=== PATIENT | female | born 1985 | race Caucasian/White ===

== ENCOUNTER 2018-06-09 01:34 | Outpatient (CLI) | payer BC, SELFPAY ==
--- NOTE | 2018-06-09 09:56 | DI.US_ITS ---
Many abnormalities cannot be diagnosed. A normal exam does not exclude a congenital anomaly. Radiology No. LMP: 04/15/19 Exam Date: 06/09/18 [facility] wks days on EDC ([facility]) Confirmed: HISTORY: TWIN INTRAUTERINE PREDICTED GESTATIONAL AGE NUMBER 8.3 weeks with a range of 7.3 week to 9.3 weeks. 1 Determined by___1STUS__X_LMP___HISTORY Info. pertaining to fetus # PLACENTA PRESENTATION Grade Cephalic___ Anterior___Posterior___ Breech____ Right Left Transverse(head right___ Fundal___Low-lying___Previa___ Transverse(head left___ Varying BIOMETRY AMNIOTIC FLUID BPD: mm weeks Normal HC: mm weeks Oligo Polyhydramnios AC: mm weeks FL: mm weeks AMNIOTIC FLUID INDEX >26 WK CRL: 19.4 mm 8.3 weeks Cisterna Magna: mm CI: RUQ: LUQ Cerebellum: cm EFW: grams Percentile RLQ: LLQ YOLK SAC: 3.5 mm. Total: cms Composite AGE= 8.3 wks EDC by US___01/16/19 BIOPHYSICAL PROFILE ANATOMY IDENTIFIED SCORE 0/2 Heart: 4-Chamber___Rate:BPM__173___ LVOT: RVOT: Amniotic Fluid(>2cms)____ Stomach: Kidneys: Respirations (>30 secs) Bladder: Post. Fossa: Body Flex/Extension 3 vessel cord: Ventricles: cord insertion: Lips:____ Extremity Flex/Extension spinal morphology: Nose: Total Score= Palate: NS=not seen There is a single intrauterine gestational sac which appears appropriately positioned within the endometrium. There is a small amount of subchorionic hemorrhage. pole measurements correspond to 8 weeks 3 days. cardiac activity is demonstrated at 173 beats per minute. A small cyst is seen on the right ovary. IMPRESSION: Single living intrauterine gestation measuring 8 weeks 3 days. Small amount of subchorionic hemorrhage is also seen.
== END 2018-06-09 01:54 ==
PROVIDERS: Visit Provider Obstetrics & Gynecology
DX: Z34.91 Encounter for supervision of normal pregnancy, unspecified, first trimester (principal); O20.8 Other hemorrhage in early pregnancy; N83.291 Other ovarian cyst, right side
CPT/HCPCS: 76801

== ENCOUNTER 2018-06-24 15:07 | Outpatient (REF) | payer BC, SELFPAY ==
--- NOTE | 2018-06-24 11:30 | PAPFT_PTH ---
PATIENT: Shena Cai LOC: [facility] U#:[id number] AGE/SX: 33/F ROOM: RE06/24/[address]: Veronica Dobbs CNM : 1985 BED: DIS: 06/24/2018 SPEC #: [id number] RECD: 06/24/18 17:26 STATUS: GIUSEPPE [place] #: [id number] ALEXUS: 06/24/18 11:[address]: Veronica Dobbs DEPT: [facility] Cytology RECD BY: Sona Lee ENTERED: 06/24/18 17:26 SP TYPE: PAPFT OTHR DR: No Local Tissues: 1 - CX/ENDOCX FOR PAP SMEARS Procedures: PAP THIN PREP/[facility] Screening HPV DNA PROBE Comments: [id number]
== END 2018-06-24 15:27 ==
LOC: LBN 15:07
PROVIDERS: Visit Provider Advanced Practice Midwife
DX: Z12.4 Encounter for screening for malignant neoplasm of cervix (principal); Z11.51 Encounter for screening for human papillomavirus (HPV)
CPT/HCPCS: 88142; 87624

== ENCOUNTER 2018-06-24 15:11 | Outpatient (REF) | payer SELFPAY ==
[2018-06-24 15:51] LABS: *AMPHETAMINES SCREEN URINE Negative (Negative); *BARBITURATES SCREEN URINE Negative (Negative); *BENZODIAZEPINES SCREEN URINE Negative (Negative); Cannabinoids THC Negative (Negative); Cocaine Screen,Urine Negative (Negative); METHADONE URINE SCREEN Negative (Negative); OPIATES URINE SCREEN Negative (Negative)
[2018-06-24 16:01] LABS: Tricyclic Antidepressants Negative (Negative)
[2018-06-25 14:57] LABS: Chlamydia Result Negative; GC Result Negative; Specimen Description CERVIX
[2018-06-28 12:23] LABS: Buprenorphine Negative; Norbuprenorphine Negative
== END 2018-06-24 15:31 ==
LOC: LBN 15:11
PROVIDERS: Visit Provider Advanced Practice Midwife
DX: Z34.91 Encounter for supervision of normal pregnancy, unspecified, first trimester (principal); Z11.3 Encounter for screening for infections with a predominantly sexual mode of transmission
CPT/HCPCS: 80307; 87491; 87591; 87086

== ENCOUNTER 2018-07-05 00:03 | Outpatient (CLI) | payer BC, SELFPAY ==
[2018-07-05 10:41] LABS: Abs Immature Grans 0.02 k/cumm (0.0-0.09); Absolute Basophil Count 0.02 k/cumm (0.0-0.2); Absolute Eosinophil Count 0.09 k/cumm (0.0-0.7); Absolute Lymphocyte Count 1.22 k/cumm (1.2-3.4); Absolute Monocyte Count 0.45 k/cumm (0.11-0.7); Absolute Neutrophil Count 6.89 k/cumm (1.2-6.7); Basophils % 0.2; HCT 38.9 % (36.0-46.0); HGB 14.1 g/dL (12.0-15.5); Immature Grans % 0.2; Mean Corp. HGB Concentration 36.2 g/dL (32.0-36.0); Mean Corpuscular Hemoglobin 30.6 pg (27.0-33.0); Mean Corpuscular Volume 84.4 fL (80-95); Mean Platelet Volume 9.5 fL (8.0-11.0); Monocytes % 5.2; Neutrophils % 79.4; Platelet Count 199 x1000/uL (130-400); RBC 4.61 m/cumm (4.00-5.20); White Blood Cell Count 8.69 k/cumm (4.4-10.8)
[2018-07-06 12:10] LABS: Rubella IgG Ab (UVM) Positive; Syphilis Serology (RPR) Negative (Negative); Varicella IgG Antibody Negative
[2018-07-06 13:17] LABS: HIV-1/2 Ag & Ab Screen Negative (NEGAT)
[2018-07-06 13:24] LABS: Hepatitis C Ab w Rflx HCV PCR Negative (NEGAT)
[2018-07-06 13:32] LABS: Hepatitis B Surface Ag Negative (NEGAT)
== END 2018-07-05 00:23 ==
PROVIDERS: Visit Provider Advanced Practice Midwife
DX: Z34.91 Encounter for supervision of normal pregnancy, unspecified, first trimester (principal); Z11.59 Encounter for screening for other viral diseases; Z11.4 Encounter for screening for human immunodeficiency virus [HIV]; Z01.84 Encounter for antibody response examination
CPT/HCPCS: 36415; 80055; 86787; 86803; 86850; 86900; 86901; 87340; 87389; 86592; 86762

== ENCOUNTER 2018-08-21 00:42 | Outpatient (CLI) | payer BC, SELFPAY ==
--- NOTE | 2018-08-21 09:46 | DI.US_ITS ---
SYMPTOMS/DIAGNOSIS: ROUTINE VISIT, , Z34.90 OB ULTRASOUND: OB ultrasound was performed utilizing second trimester protocol. The biometry is consistent with a gestational age of 18 weeks 5 days and an EDC of 01/17/19. The placenta is posterior with no evidence of placenta previa. There is a normal quantity of amniotic fluid. anomaly screen is within normal limits as per the attached checklist. Predicted Gestational Age: Indication/History: survey 18+6 Wks Range: 17+6 to 19+6 Prior US done on: 06/09/18 Determined by: First US X LMP History EDC by prior US: 01/16/19 For multiple gestations: Baby PLACENTA: Grade: I Location: Anterior Posterior X PRESENTATION: RT LT LOW LYING PREVIA Cephalic Trans (Head RT LT ) Varied X Breech BIOMETRY: Anatomy Identified: BPD: 42 mm 18+4 wks 4 chamber Heart X Heart Rate 152 BPM HC: 161 mm 18+6 wks LVOT X Post Fossa X AC: 130 mm 18+4 wks RVOT X Ventricles X FL: 28 mm 18+4 wks tomach X Nose X Bladder X Lips X Cisterna Magna: 5 mm CI: 78 Kidneys X Palate X Cerebellum: 1.8 mm 3 vessel cord X Spine X EFW: 246 grms 29% Cord Insertion X NS= not seen Composite Age (US) 18+5 wks Many abnormalities cannot be diagnosed. A normal exam does not exclude congenital abnormality. EDC by US 01/17/19 Amniotic Fluid Index: Normal COMMENTS: RUQ: LUQ: RLQ: LLQ: Total: cm Biophysical Profile: Score 0/2 MELODY (>2cm) Respirations (>30 sec) Body flexion/extension Extremity flexion/extension TOTAL SCORE Updated: 08/21/18 mirta
== END 2018-08-21 01:02 ==
PROVIDERS: Visit Provider Advanced Practice Midwife
DX: Z34.92 Encounter for supervision of normal pregnancy, unspecified, second trimester (principal)
CPT/HCPCS: 76805

== ENCOUNTER 2018-10-16 02:36 | Outpatient (CLI) | payer BC, SELFPAY ==
[2018-10-16 12:42] LABS: HCT 34.9 % (36.0-46.0); HGB 12.4 g/dL (12.0-15.5); Mean Corp. HGB Concentration 35.5 g/dL (32.0-36.0); Mean Corpuscular Hemoglobin 31.7 pg (27.0-33.0); Mean Corpuscular Volume 89.3 fL (80-95); Mean Platelet Volume 9.4 fL (8.0-11.0); Platelet Count 156 x1000/uL (130-400); RBC 3.91 m/cumm (4.00-5.20); RBC Distribution Width 13.7 % (11.7-14.6); White Blood Cell Count 9.86 k/cumm (4.4-10.8)
[2018-10-16 12:50] LABS: Glucose,1 Hr (Glucola) 122 mg/dL (80-140)
== END 2018-10-16 02:56 ==
PROVIDERS: Visit Provider Advanced Practice Midwife
DX: Z34.92 Encounter for supervision of normal pregnancy, unspecified, second trimester (principal); Z98.891 History of uterine scar from previous surgery
CPT/HCPCS: 36415; 82950; 85027

== ENCOUNTER 2018-12-18 16:23 | Outpatient (REF) | payer BC, SELFPAY ==
[2018-12-18 17:10] LABS: *AMPHETAMINES SCREEN URINE Negative (Negative); *BARBITURATES SCREEN URINE Negative (Negative); *BENZODIAZEPINES SCREEN URINE Negative (Negative); Cannabinoids THC Negative (Negative); Cocaine Screen,Urine Negative (Negative); METHADONE URINE SCREEN Negative (Negative); OPIATES URINE SCREEN Negative (Negative)
[2018-12-18 17:16] LABS: Tricyclic Antidepressants Negative (Negative)
[2018-12-25 12:02] LABS: Buprenorphine Negative; Norbuprenorphine Negative
== END 2018-12-18 16:43 ==
LOC: NCHCN 16:23
PROVIDERS: Visit Provider Advanced Practice Midwife
DX: Z34.93 Encounter for supervision of normal pregnancy, unspecified, third trimester (principal); Z36.85 Encounter for antenatal screening for Streptococcus B
CPT/HCPCS: 80307; 87081

== ENCOUNTER 2019-01-22 08:04 | Outpatient (CLI) | payer BC, SELFPAY | END 2019-01-22 08:24 | PROVIDERS: Visit Provider Advanced Practice Midwife | DX: O48.0 Post-term pregnancy (principal); Z3A.40 40 weeks gestation of pregnancy; O34.211 Maternal care for low transverse scar from previous cesarean delivery | CPT/HCPCS: 59025 ==

== ENCOUNTER 2019-01-26 11:37 | Outpatient (CLI) | payer BC, SELFPAY ==
[2019-01-26 12:54] LABS: HGB 12.2 g/dL (12.0-15.5); Mean Corp. HGB Concentration 34.9 g/dL (32.0-36.0); Mean Corpuscular Hemoglobin 30.3 pg (27.0-33.0); Mean Corpuscular Volume 86.8 fL (80-95); Mean Platelet Volume 9.9 fL (8.0-11.0); Platelet Count 167 x1000/uL (130-400); RBC 4.03 m/cumm (4.00-5.20); RBC Distribution Width 13.4 % (11.7-14.6); White Blood Cell Count 9.78 k/cumm (4.4-10.8)
[2019-01-26 13:35] LABS: Anion Gap 10.3 mmol/L (3-11); BUN 8 mg/dL (7-18); CO2 22.7 mmol/L (21.0-32.0); Calcium 8.1 mg/dL (8.5-10.1); Chloride 105 mmol/L (98-107); Glucose 84 mg/dL (70-100); Potassium 3.6 mmol/L (3.5-5.1); Sodium 138 mmol/L (136-145)
== END 2019-01-26 11:57 ==
PROVIDERS: Visit Provider Obstetrics & Gynecology Gynecology
DX: Z34.93 Encounter for supervision of normal pregnancy, unspecified, third trimester (principal)
CPT/HCPCS: 36415; 80048; 85027; 86850; 86900; 86901

== ENCOUNTER 2019-01-27 08:10 | Inpatient (IN) | payer BC, SELFPAY ==
[2019-01-27] MEDS: Lactated Ringers 1,000 ML 125 ML IV ×2 (11:00→18:51)
[2019-01-27] MEDS: Normal Saline Flush 10 ML SYR IV (11:30)
[2019-01-27] MEDS: Lidocaine 1% Multi-Dose 20 ML VIAL (13:30)
[2019-01-27] MEDS: Oxytocin 10 UNITS/ML VIAL IV (13:45)
[2019-01-27] MEDS: Ibuprofen 600 MG TAB PO ×2 (18:22→23:51)
[2019-01-27] MEDS: Hamamelis Leaf/Glycerin 100 EACH BOX PR (18:22)
[2019-01-27] MEDS: Docusate Sodium 100 MG CAP PO (18:34)
[2019-01-28] MEDS: Ibuprofen 600 MG TAB PO ×2 (07:39→13:33)
[2019-01-28] MEDS: Acetaminophen 325 MG TAB 650 MG PO ×2 (07:40→13:33)
[2019-01-28 07:41] LABS: HCT 32.6 % (36.0-46.0); Mean Corp. HGB Concentration 33.7 g/dL (32.0-36.0); Mean Corpuscular Hemoglobin 29.4 pg (27.0-33.0); Mean Corpuscular Volume 87.2 fL (80-95); Mean Platelet Volume 10.1 fL (8.0-11.0); Platelet Count 167 x1000/uL (130-400); RBC 3.74 m/cumm (4.00-5.20); RBC Distribution Width 13.5 % (11.7-14.6)
== END 2019-01-28 18:15 | disposition home or self-care (01) | DRG 807 ==
PROVIDERS: Advanced Practice Midwife; Admitting Provider Obstetrics & Gynecology Gynecology; Visit Provider Obstetrics & Gynecology Gynecology
DX: O70.1 Second degree perineal laceration during delivery (principal); Z37.0 Single live birth; O77.0 Labor and delivery complicated by meconium in amniotic fluid; O75.82 Onset (spontaneous) of labor after 37 completed weeks of gestation but before 39 completed weeks gestation, with delivery by (planned) cesarean section; Z3A.41 41 weeks gestation of pregnancy; O48.0 Post-term pregnancy; O34.211 Maternal care for low transverse scar from previous cesarean delivery; N85.8 Other specified noninflammatory disorders of uterus
CPT/HCPCS: 36415; 85027; J2590; J3490

== ENCOUNTER 2022-01-16 10:34 | Outpatient (REF) | payer BC, SELFPAY ==
--- NOTE | 2022-01-16 08:54 | PAPFT_PTH ---
PATIENT: Shena Cai LOC: [facility] U#:[id number] AGE/SX: 36/F ROOM: RE01/16/[address]: Tere Gómez : 1985 BED: DIS: 01/16/2022 SPEC #: [id number] RECD: 01/16/22 17:40 STATUS: GIUSEPPE REQ #: [id number] ALEXUS: 01/16/22 08:[address]: Tere Gómez DEPT: [facility] Cytology RECD BY: Sona Lee ENTERED: 01/16/22 17:40 SP TYPE: PAPFT OTHR DR: Unknown,Unknown Tissues: 1 - CX/ENDOCX FOR PAP SMEARS Procedures: PAP THIN PREP/[facility] Screening HPV DNA PROBE Comments: [id number]
== END 2022-01-16 10:35 | disposition home or self-care (01) ==
LOC: NCHCN 10:34
PROVIDERS: Visit Provider Nurse Practitioner Family
DX: Z12.4 Encounter for screening for malignant neoplasm of cervix (principal); Z11.51 Encounter for screening for human papillomavirus (HPV)
CPT/HCPCS: 88142; 87624